=== PATIENT | female | born 1965 | race Hispanic/Latino ===

== ENCOUNTER 2020-03-06 11:13 | Emergency (ER) | payer OTHER ==
--- NOTE | 2020-03-06 14:54 | Event Note ---
ED Screening Note Date of service: 03/06/20 Time: 14:50 ED Screening Note: 5-year-old female with a history of anxiety complaining of upper abdominal pain upper back pain with pain body aches.. Patient states that she stopped taking Cymbalta for anxiety. This initial assessment/diagnostic orders/clinical plan/treatment(s) is/are subject to change based on patients health status, clinical progression and re- assessment by fellow clinical providers in the ED. Further treatment and workup at subsequent clinical providers discretion. Patient/guardian urged not to elope from the ED as their condition may be serious if not clinically assessed and managed. Initial orders include: CBC CMP, UDS. UA
[2020-03-06 16:04] LABS: Basophils % (Auto) 0.4 % (0.0-1.8); Eosinophils # (Auto) 0.1 K/mm3 (0.0-0.4); Eosinophils % (Auto) 1.3 % (0.0-4.3); Hematocrit 44.5 % (30.3-42.9); Hemoglobin 15.1 gm/dl (10.1-14.3); Lymphocytes # (Auto) 2.7 K/mm3 (1.2-5.4); Lymphocytes % (Auto) 29.5 % (13.4-35.0); Mean Corpuscular HGB Conc 34 % (30-34); Mean Corpuscular Volume 91 fl (79-97); Monocytes # (Auto) 0.6 K/mm3 (0.0-0.8); Monocytes % (Auto) 6.1 % (0.0-7.3); Platelet Count 218 K/mm3 (140-440); Red Blood Count 4.88 M/mm3 (3.65-5.03); Red Cell Distribution Width 13.3 % (13.2-15.2)
[2020-03-06 16:21] LABS: Alanine Aminotransferase 22 units/L (7-56); Albumin 4.2 g/dL (3.9-5); Blood Urea Nitrogen 12 mg/dL (7-17); Calcium 9.7 mg/dL (8.4-10.2); Hemolysis Index 30
[2020-03-06 16:26] LABS: BUN/Creatinine Ratio 30
[2020-03-06] MEDS ORDERED: METOCLOPRAMIDE 10 MG TAB PO ONE (20:07)
[2020-03-06] MEDS ORDERED: ACETAMINOPHEN 500 MG TAB PO ONE (20:07)
[2020-03-06] MEDS ORDERED: diphenhydrAMINE 25 MG CAP PO ONE (20:08)
--- NOTE | 2020-03-06 20:24 | Emergency Department Report ---
ED General Adult HPI - General Chief complaint: Pain General Stated complaint: BODY ACHES Time Seen by Provider: 03/06/20 19:32 Source: patient Mode of arrival: Ambulatory Limitations: No Limitations - History of Present Illness Initial comments: Pt is a 55-year-old female with a history of anxiety complaining of upper abdominal pain upper back pain with pain body aches. last BM 5 days ago states abdominal bloating with generalized bodyache. Patient states that she stopped taking Cymbalta for anxiety1 week ago. pt denies vomiting , does endorse ass ociated headache intermittent right frontal. rated at 5/10 sharp , headache is in usual location and intensity as previous occasional headaches of past. There has been no fever or chills. She denies SI/HI or withdrawal symptoms. - Related Data Previous Rx's Medication Instructions Recorded Last Taken Type Naproxen 500 mg PO BID PRN #30 tablet 03/06/20 Unknown Rx bisacodyL [Dulcolax suppos] 10 mg OK QDAY PRN #5 supp.rect 03/06/20 Unknown Rx polyethylene glycoL 3350 [Miralax 17 gm PO BID PRN #14 packet 03/06/20 Unknown Rx 3350] Allergies Allergy/AdvReac Type Severity Reaction Status Date / Time No Known Allergies Allergy Unverified 03/06/20 11:20 ED Review of Systems ROS: Stated complaint: BODY ACHES Other details as noted in HPI Constitutional: malaise. denies: chills, fever Eyes: denies: eye pain, eye discharge, vision change ENT: denies: ear pain, throat pain Respiratory: denies: cough, shortness of breath, wheezing Cardiovascular: as per HPI Endocrine: no symptoms reported Gastrointestinal: abdominal pain, constipation. denies: nausea, vomiting, diarrhea, melena Genitourinary: denies: urgency, dysuria, frequency, hematuria, discharge Musculoskeletal: back pain, myalgia Skin: denies: rash, lesions Neurological: denies: headache, weakness, paresthesias Psychiatric: denies: anxiety, depression Hematological/Lymphatic: denies: easy bleeding, easy bruising ED Past Medical Hx - Past Medical History Previous Medical History?: Yes Hx Hypertension: Yes Hx Psychiatric Treatment: Yes (aniety) - Social History Smoking Status: Current Every Day Smoker Substance Use Type: None - Medications Home Medications: Home Medications Medication Instructions Recorded Confirmed Last Taken Type Naproxen 500 mg PO BID PRN #30 tablet 03/06/20 Unknown Rx bisacodyL [Dulcolax suppos] 10 mg OK QDAY PRN #5 supp.rect 03/06/20 Unknown Rx polyethylene glycoL 3350 [Miralax 17 gm PO BID PRN #14 packet 03/06/20 Unknown Rx 3350] ED Physical Exam - General Limitations: No Limitations General appearance: alert, in no apparent distress - Head Head exam: Present: atraumatic, normocephalic - Eye Eye exam: Present: normal appearance, EOMI Pupils: Present: normal accommodation - ENT ENT exam: Present: mucous membranes moist - Neck Neck exam: Present: normal inspection - Respiratory Respiratory exam: Present: normal lung sounds bilaterally. Absent: respiratory distress, wheezes, stridor, chest wall tenderness - Cardiovascular Cardiovascular Exam: Present: regular rate, normal rhythm, normal heart sounds. Absent: systolic murmur, diastolic murmur, rubs, gallop - GI/Abdominal GI/Abdominal exam: Present: soft, normal bowel sounds. Absent: distended, tenderness, guarding, rebound, rigid, bruit, hernia - Rectal Rectal exam: Present: deferred - Extremities Exam Extremities exam: Present: normal inspection, full ROM, normal capillary refill. Absent: pedal edema, joint swelling - Back Exam Back exam: Present: normal inspection, full ROM. Absent: tenderness, CVA tenderness (R), CVA tenderness (L), vertebral tenderness - Neurological Exam Neurological exam: Present: alert, oriented X3, CN II-XII intact, normal gait - Psychiatric Psychiatric exam: Present: normal affect, normal mood - Skin Skin exam: Present: warm, dry, intact, normal color. Absent: rash ED Course Vital Signs 03/06/20 03/06/20 03/06/20 19:35 20:34 21:53 Temperature 98.1 F 97.7 F Pulse Rate 69 64 Respiratory 16 18 17 Rate Blood Pressure 127/72 142/67 [Left] O2 Sat by Pulse 97 99 Oximetry ED Medical Decision Making - Lab Data Result diagrams: 03/06/20 15:48 03/06/20 15:48 - Radiology Data Radiology results: report reviewed, image reviewed Findings Reporting MD: Jeff Oswald Dictation Time: March 06, 2020 20:18 Senior Research Scientist: Not available Etl Software Engineer Date: ABDOMEN 1 VIEW 03/06/2020 7:18 PM INDICATION / CLINICAL INFORMATION: abd pain. COMPARISON: None available. FINDINGS: TUBES / LINES: None. BOWEL GAS PATTERN: Nonobstructive gas pattern. Stool throughout the colon suggesting constipation. FREE AIR / EXTRALUMINAL GAS: None. ADDITIONAL FINDINGS: No significant additional findings. IMPRESSION: 1. No acute abnormality. Signer Name: Jeff Oswald MD Signed: 03/06/2020 8:18 PM Workstation Name: [id number] - Medical Decision Making xray KUB above, dx : constipation, plan: Laxitive of choice, hydrate , nsaids prn, follow up wicho García as scheduled, pt verbalized agreement and understanding of discharge. Critical care attestation.: If time is entered above; I have spent that time in minutes in the direct care of this critically ill patient, excluding procedure time. ED Disposition Clinical Impression: Constipation Qualifiers: Constipation type: unspecified constipation type Qualified Code(s): K59.00 - Constipation, unspecified Abdominal pain Qualifiers: Abdominal location: generalized Qualified Code(s): R10.84 - Generalized abdomi nal pain Disposition: TO HOME OR SELFCARE Is pt being admited?: No Does the pt Need Aspirin: No Condition: Stable Instructions: Constipation, Adult, Abdominal Pain, Adult, [id number] Prescriptions: bisacodyL [Dulcolax suppos] 10 mg OK QDAY PRN #5 supp.rect PRN Reason: Constipation polyethylene glycoL 3350 [Miralax 3350] 17 gm PO BID PRN #14 packet PRN Reason: Constipation Naproxen 500 mg PO BID PRN #30 tablet PRN Reason: pain Referrals: SHADY VERDUZCO [Other] - 3-5 Days Forms: Work/School Release Form(ED) Time of Disposition: 22:00
[2020-03-06 20:39] LABS: Bilirubin,Urine NEG (Negative); Blood,Urine NEG (Negative); Color,Urine Yellow (Yellow); Protein,Urine <15 mg/dL mg/dL (Negative); Urobilinogen,Urine < 2.0 mg/dL (<2.0)
[2020-03-06 20:48] LABS: Amphetamine Screen,Urine PRESUMPTIVE NEGATIVE; Benzodiazepines Screen,Urine PRESUMPTIVE NEGATIVE; Cannabinoid Screen,Urine PRESUMPTIVE NEGATIVE; Cocaine Screen,Urine PRESUMPTIVE NEGATIVE; Methadone Screen,Urine PRESUMPTIVE NEGATIVE; Opiate Screen,Urine PRESUMPTIVE NEGATIVE
--- NOTE | 2020-03-06 21:23 | XRay Report ---
ABDOMEN 1 VIEW 03/06/2020 7:18 PM INDICATION / CLINICAL INFORMATION: abd pain. COMPARISON: None available. FINDINGS: TUBES / LINES: None. BOWEL GAS PATTERN: Nonobstructive gas pattern. Stool throughout the colon suggesting constipation. FREE AIR / EXTRALUMINAL GAS: None. ADDITIONAL FINDINGS: No significant additional findings. IMPRESSION: 1. No acute abnormality. Signer Name: Jeff Oswald MD Signed: 03/06/2020 9:18 PM Workstation Name: [id number]
[2020-03-06 21:54] VITALS: BP 142/67
== END 2020-03-06 22:30 | disposition home or self-care (01) ==
LOC: ED 11:13
DX: K59.00 Constipation, unspecified (principal); I10 Essential (primary) hypertension; F41.9 Anxiety disorder, unspecified; F17.200 Nicotine dependence, unspecified, uncomplicated; Z79.899 Other long term (current) drug therapy
CPT/HCPCS: 36415; 74018; 80053; 80307; 81001; 85025